=== PATIENT | male | born 1980 | race African-American/Black ===

== ENCOUNTER 2019-08-22 11:23 | Inpatient (IN) | payer OTHER ==
[2019-08-22 12:20] VITALS: BMI 23.9
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
[2019-08-22] MEDS ORDERED: MAGNESIUM CITRATE 300 ML BOTTLE PO PRN (16:35)
[2019-08-22] MEDS ORDERED: ACETAMINOPHEN 325 MG TABLET (FP) PO PRN ×2 (16:35)
[2019-08-22] MEDS ORDERED: cloNIDine HCL 0.1 MG TABLET PO PRN (16:35)
[2019-08-22] MEDS ORDERED: MENTHOL/PHENOL 1 EACH UD MM PRN (16:35)
[2019-08-22] MEDS ORDERED: IBUPROFEN 400 MG TABLET (FP) PO PRN (16:35)
[2019-08-22] MEDS ORDERED: MAG HYDROX/AL HYDROX/SIMETH 30 ML UNIT-DOSE CUP PO PRN (16:35)
[2019-08-22] MEDS ORDERED: BISMUTH SUBSALICYLATE 524 MG/30 ML UD PO PRN (16:35)
[2019-08-22] MEDS ORDERED: MAGNESIUM HYDROX 2400MG/30ML ORAL SUSPENSION 30 ML CUP PO PRN (16:35)
[2019-08-22] MEDS ORDERED: METHADONE HCL 10 MG TABLET (FOR DETOX USE ONLY) PO ONE (17:30)
[2019-08-22] MEDS: METHOCARBAMOL 500 MG TABLET PO PRN (17:38)
[2019-08-22] MEDS: THIAMINE HCL 100 MG TABLET (FP) PO SCH (22:19)
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
[2019-08-23 09:46] LABS: HEMOGLOBIN 12.6 GM/dL (11.7-16.9); MCHC 33.2 g/dl (32.0-35.9); MEAN CELL VOLUME 87.3 fl (80-96); MEAN PLT VOLUME 8.4 fl (7.5-11.1); PLATELET COUNT 262 K/MM3 (134-434); RBC 4.35 M/mm3 (4.00-5.60); RDW 13.8 % (11.9-15.9); WHITE BLOOD COUNT 4.2 K/mm3 (4.0-10.0)
[2019-08-23] MEDS ORDERED: METHADONE HCL 5 MG TABLET (FOR DETOX USE ONLY) PO ONE (10:00)
[2019-08-23] MEDS ORDERED: cloNIDine HCL 0.1 MG TABLET PO PRN (10:00)
[2019-08-23] MEDS ORDERED: METHADONE HCL 5 MG TABLET (FOR DETOX USE ONLY) ONE (10:10)
--- NOTE | 2019-08-23 10:10 | PN ---
[facility] CIWA - CIWA Score Nausea/Vomitin-Mild Nausea/No Vomiting Muscle Tremors: 3 Anxiety: 3 Agitation: 2 Paroxysmal Sweats: 1-Minimal Palms Moist Orientation: 0-Oriented Tacttile Disturbances: 1-Very Mild Itch/Numbness Auditory Disturbances: 0-None Visual Disturbances: 0-None Headache: 2-Mild CIWA-Ar Total Score: 13 BHS COWS - Scale Resting Pulse: 0= [place] 80 or Below Sweatin= No chills or Flushing Restless Observation: 1= Difficult to Sit Still Pupil Size: 1= Pupils >than Normal Bone or Joint Aches: 2= Severe Diffuse Aches Runny Nose/ Eye Tearin= Runny Nose/Eyes GI Upset > 30mins: 2= Nausea/Diarrhea Tremor Observation of Outstretched Hands: 2= Slight Tremor Visible Yawning Observation: 1= 1-2x During Session Anxiety or Irritability: 2=Irritable/Anxious Goose Flesh Skin: 0=Smooth Skin COWS Score: 13 [facility] Progress Note (SOAP) Subjective: alert,irritable,anxious,interrupted sleep,pain in the body and back,nausea, abdominal cramp Objective: 08/23/19 10:09 Vital Signs Temperature 97.9 F 08/23/19 09:28 Pulse Rate 60 08/23/19 09:28 Respiratory Rate 18 08/23/19 09:28 Blood Pressure 129/68 08/23/19 09:28 O2 Sat by Pulse Oximetry (%) Laboratory Last Values WBC 4.2 K/mm3 (4.0-10.0) 08/23/19 07:10 RBC 4.35 M/mm3 (4.00-5.60) 08/23/19 07:10 Hgb 12.6 GM/dL (11.7-16.9) 08/23/19 07:10 Hct 38.0 % (35.4-49) 08/23/19 07:10 MCV 87.3 fl (80-96) 08/23/19 07:10 MCH 29.0 pg (25.7-33.7) 08/23/19 07:10 MCHC 33.2 g/dl (32.0-35.9) 08/23/19 07:10 RDW 13.8 % (11.9-15.9) 08/23/19 07:10 Plt Count 262 K/MM3 (134-434) D 08/23/19 07:10 MPV 8.4 fl (7.5-11.1) D 08/23/19 07:10 labs pending Assessment: 08/23/19 10:09 severe withdrawal symptom Plan: continue detox methadone and librium regimen
[2019-08-23 10:21] LABS: ALBUMIN 3.5 g/dl (3.4-5.0); BILIRUBIN,TOTAL 0.4 mg/dL (0.2-1); BLOOD UREA NITROGEN 8.7 mg/dL (7-18); CALCIUM 9.1 mg/dL (8.5-10.1); POTASSIUM 4.2 mmol/L (3.5-5.1); TOT PROT 6.7 g/dl (6.4-8.2)
[2019-08-23] MEDS ORDERED: METHADONE HCL 10 MG TABLET (FOR DETOX USE ONLY) PO ONE (10:40)
[2019-08-23] MEDS: PRENATAL VITAMINS W/ FOLIC ACID TABLET (FP) PO SCH (11:14)
[2019-08-23] MEDS: METHOCARBAMOL 500 MG TABLET PO PRN (22:05)
[2019-08-23] MEDS: MELATONIN 5 MG TABLETS PO PRN (22:05)
[2019-08-23] MEDS: THIAMINE HCL 100 MG TABLET (FP) PO SCH (22:06)
[2019-08-24] MEDS ORDERED: METHADONE HCL 5 MG TABLET (FOR DETOX USE ONLY) ONE (09:34)
[2019-08-24] MEDS ORDERED: METHADONE HCL 10 MG TABLET (FOR DETOX USE ONLY) ONE (09:34)
[2019-08-24] MEDS ORDERED: METHADONE HCL 10 MG TABLET (FOR DETOX USE ONLY) PO ONE (10:00)
[2019-08-24] MEDS ORDERED: METHADONE (DETOX) 20 MG, METHADONE (DETOX) 5 MG PO ONE (10:00)
--- NOTE | 2019-08-24 10:18 | PN ---
S CIWA - CIWA Score Nausea/Vomitin-Mild Nausea/No Vomiting Muscle Tremors: 2 Anxiety: 2 Agitation: 2 Paroxysmal Sweats: No Perspiration Orientation: 0-Oriented Tacttile Disturbances: 0-None Auditory Disturbances: 0-None Visual Disturbances: 0-None Headache: 2-Mild CIWA-Ar Total Score: 9 BHS COWS - Scale Resting Pulse: 0= [place] 80 or Below Sweatin= No chills or Flushing Restless Observation: 1= Difficult to Sit Still Pupil Size: 1= Pupils >than Normal Bone or Joint Aches: 1= Mild Discomfort Runny Nose/ Eye Tearin= Nasal Congestion GI Upset > 30mins: 1= Stomach Cramp Tremor Observation of Outstretched Hands: 2= Slight Tremor Visible Yawning Observation: 1= 1-2x During Session Anxiety or Irritability: 2=Irritable/Anxious Goose Flesh Skin: 0=Smooth Skin COWS Score: 10 [facility] Progress Note (SOAP) Subjective: alert,irritable,anxious,interrupted sleep,pain in the back and body Objective: 08/24/19 10:16 Vital Signs Temperature 97.5 F L 08/24/19 09:42 Pulse Rate 60 08/24/19 09:42 Respiratory Rate 16 08/24/19 09:42 Blood Pressure 137/70 08/24/19 09:42 O2 Sat by Pulse Oximetry (%) Laboratory Last Values WBC 4.2 K/mm3 (4.0-10.0) 08/23/19 07:10 RBC 4.35 M/mm3 (4.00-5.60) 08/23/19 07:10 Hgb 12.6 GM/dL (11.7-16.9) 08/23/19 07:10 Hct 38.0 % (35.4-49) 08/23/19 07:10 MCV 87.3 fl (80-96) 08/23/19 07:10 MCH 29.0 pg (25.7-33.7) 08/23/19 07:10 MCHC 33.2 g/dl (32.0-35.9) 08/23/19 07:10 RDW 13.8 % (11.9-15.9) 08/23/19 07:10 Plt Count 262 K/MM3 (134-434) D 08/23/19 07:10 MPV 8.4 fl (7.5-11.1) D 08/23/19 07:10 Sodium 139 mmol/L (136-145) 08/23/19 07:10 Potassium 4.2 mmol/L (3.5-5.1) 08/23/19 07:10 Chloride 107 mmol/L (98-107) 08/23/19 07:10 Carbon Dioxide 29 mmol/L (21-32) 08/23/19 07:10 Anion Gap 3 MMOL/L (8-16) L 08/23/19 07:10 BUN 8.7 mg/dL (7-18) 08/23/19 07:10 Creatinine 1.0 mg/dL (0.55-1.3) 08/23/19 07:10 Est GFR (CKD-EPI)AfAm 110.17 08/23/19 07:10 Est GFR (CKD-EPI)NonAf 95.05 08/23/19 07:10 Random Glucose 86 mg/dL (74-106) 08/23/19 07:10 Calcium 9.1 mg/dL (8.5-10.1) 08/23/19 07:10 Total Bilirubin 0.4 mg/dL (0.2-1) 08/23/19 07:10 AST 26 U/L (15-37) 08/23/19 07:10 ALT 24 U/L (13-61) 08/23/19 07:10 Alkaline Phosphatase 121 U/L (45-117) H 08/23/19 07:10 Total Protein 6.7 g/dl (6.4-8.2) 08/23/19 07:10 Albumin 3.5 g/dl (3.4-5.0) 08/23/19 07:10 RPR Titer Nonreactive (NONREACTIVE) 08/23/19 07:10 Assessment: 08/24/19 10:17 withdrawal symptom Plan: continue detox methadone and librium regimen
[2019-08-24] MEDS: PRENATAL VITAMINS W/ FOLIC ACID TABLET (FP) PO SCH (10:55)
[2019-08-24] MEDS ORDERED: HALOPERIDOL 5 MG TABLET (FP) PO ONE (15:28)
[2019-08-24] MEDS ORDERED: BENZTROPINE MESYLATE 1 MG TABLET (FP) PO PRN (15:29)
[2019-08-24] MEDS ORDERED: HALOPERIDOL 2 MG TABLET PO PRN (15:30)
--- NOTE | 2019-08-24 15:39 | PN ---
Psychiatric Progress Note Vital Signs: Vital Signs Period Temp Pulse Resp BP Sys/Diaz Pulse Ox Last 24 Hr 97.5 F-98.2 F 53-74 16-19 113-137/68-82 Date of Session: 08/24/19 Chief Complaint:: asked to be seen by nursing staff HPI: Patient admitted to for treatment of alcohol, opioid, cocaine, cannabis and phencyclidine dependence. ROS: Patient is coherent, alert + oriented X3. Current Medications: Active Medications Generic Name Dose Route Start Last Admin Trade Name Freq PRN Reason Stop Dose Admin Acetaminophen 650 mg 08/22/19 16:35 Tylenol - PO Q6H PRN PAIN LEVEL 4 - 6 Acetaminophen 650 mg 08/22/19 16:35 Tylenol - PO Q6H PRN FEVER Al Hydroxide/Mg Hydroxide 30 ml 08/22/19 16:35 Mylanta Oral Suspension - PO Q6H PRN DYSPEPSIA Benztropine Mesylate 1 mg 08/24/19 15:29 Cogentin - PO BID PRN stiffness Bismuth Subsalicylate 524 mg 08/22/19 16:35 Pepto-Bismol - PO Q1H PRN DIARRHEA Clonidine 0.1 mg 08/23/19 10:00 Catapres - PO 08/25/19 23:59 Q4H PRN Withdrawal Symptoms Eucalyptus/Menthol/Phenol/Sorbitol 1 each 08/22/19 16:35 Cepastat Lozenge - MM 08/28/19 16:35 Q4H PRN SORE THROAT Haloperidol 5 mg 08/24/19 22:00 Haldol - PO BID CHIKI Haloperidol 2 mg 08/24/19 15:30 Haldol - PO Q6H PRN AGITATION Hydroxyzine Pamoate 25 mg 08/22/19 16:35 Vistaril - PO 08/28/19 16:35 Q6H PRN For Anxiety Ibuprofen 400 mg 08/22/19 16:35 Motrin - PO Q6H PRN PAIN LEVEL 1 - 3 Magnesium Citrate 300 ml 08/22/19 16:35 Citroma - PO Q48H PRN CONSTIPATION Magnesium Hydroxide 30 ml 08/22/19 16:35 Milk Of Magnesia - PO PRN PRN CONSTIPATION Melatonin 5 mg 08/22/19 16:35 08/23/19 22:05 Melatonin PO 5 mg HS PRN Administration INSOMNIA Methadone HCl 10 mg/ Methadone 15 mg 08/26/19 10:00 HCl 5 mg PO 08/26/19 10:01 ONCE ONE Methadone HCl 5 mg 08/28/19 06:00 Dolophine - PO 08/28/19 06:01 ONCE@0600 ONE Methadone HCl 10 mg 08/27/19 10:00 Dolophine - PO 08/27/19 10:01 ONCE ONE Methadone HCl 20 mg 08/25/19 10:00 Dolophine - PO 08/25/19 10:01 ONCE ONE Methocarbamol 500 mg 08/22/19 16:35 08/23/19 22:05 Robaxin - PO 08/28/19 16:35 500 mg Q6H PRN Administration MUSCLE SPASMS Multivit/Folic Acid/Iron 1 tab 08/23/19 10:00 08/24/19 10:55 Vitamins (Sjr) - PO 1 tab DAILY CHIKI Administration Thiamine HCl 100 mg 08/22/19 22:00 08/23/19 22:06 Vitamin B1 - PO 100 mg HS CHIKI Administration Medication(s) Change(s): Yes. Current Side Effect: No Lab tests ordered: No Lab tests reviewed: Yes Provider note:: Consultation ordered after it was noted by the nursing staff that patient was pacing the hallway and speaking to self. Pt. seen by Dr. Astorga on 08/22/19. Dr. Astorga's note read and appreciated. Patient unable/ unwilling to provide a clear psychiatric history. States that he has a diagnosis of Bipolar disorder and has been treated in the past with haldol but has not received psychotropic medications in a "long time". Reports one psychiatric hospitalization many years ago at [facility]. Denies current outpatient psychiatric care. Stated to copywriter that his plan is to complete detox and to continue treatment at the [facility]. As per Dr. Tanner's note from 2013 patient has a diagnosis of paranoid schizophrenia and has been treated with haldol deconate 50mg in the past. At present, patient does not appear to be overly psychotic but would benefit from psychopharmacological treatment. He is cooperative with copywriter but is guarded with underlining irritability. Patient at risk for further decompensation if not treated with psychotropic medication. Patient denies auditory/visual hallucinations, suicidal/homicidal ideation. Will order one time Stat dose of Haldol 5mg. Will also order Haldol 5mg BID + Haldol 5mg Q8H PRN for agitation + Cogentin 1mg BID PRN. Benefits and side effects discussed. Verbal consent given. Total face to face time:: 25 Mental Status Exam - Mental Status Exam Alert and Oriented to: Time, Place, Person Cognitive Function: Good Patient Appearance: Well Groomed Mood: Withdrawn Affect: Mood Congruent Patient Behavior: Guarded, Cooperative Speech Pattern: Clear Voice Loudness: Normal Thought Process: Goal Oriented Thought Disorder: Not Present Hallucinations: Denies Suicidal Ideation: Denies Homicidal Ideation: Denies Insight/Judgement: Poor Sleep: Fair Appetite: Fair Muscle strength/Tone: Normal Gait/Station: Normal Psychiatric Treatment Plan - Problem List (1) Cocaine dependence Current Visit: Yes (2) Phencyclidine abuse Current Visit: Yes (3) Substance induced mood disorder Current Visit: Yes (4) Substance-induced sleep disorder Current Visit: Yes (5) Paranoid schizophrenia Current Visit: Yes
[2019-08-24] MEDS: hydrOXYzine PAMOATE 25 MG CAPSULE (FP) PO PRN (15:48)
[2019-08-24] MEDS ORDERED: HALOPERIDOL 5 MG TABLET (FP) PO PRN (15:52)
[2019-08-24] MEDS: HALOPERIDOL 5 MG TABLET (FP) PO SCH (22:11)
[2019-08-24] MEDS: THIAMINE HCL 100 MG TABLET (FP) PO SCH (22:11)
[2019-08-25] MEDS ORDERED: METHADONE HCL 5 MG TABLET (FOR DETOX USE ONLY) PO ONE (06:00)
[2019-08-25] MEDS ORDERED: METHADONE HCL 10 MG TABLET (FOR DETOX USE ONLY) PO ONE (10:00)
[2019-08-25] MEDS: PRENATAL VITAMINS W/ FOLIC ACID TABLET (FP) PO SCH (10:50)
[2019-08-25] MEDS: HALOPERIDOL 5 MG TABLET (FP) PO SCH ×2 (10:50→22:13)
--- NOTE | 2019-08-25 11:51 | PN ---
S CIWA - CIWA Score Nausea/Vomitin-Mild Nausea/No Vomiting Muscle Tremors: 1-None Visible, but [place] Anxiety: 1-Mildly Anxious Agitation: 1-Slight > Activity Paroxysmal Sweats: 2 Orientation: 0-Oriented Tacttile Disturbances: 2-Mild Itch/Numbness/Burn Auditory Disturbances: 0-None Visual Disturbances: 0-None Headache: 0-None Present CIWA-Ar Total Score: 8 BHS COWS - Scale Resting Pulse: 1= [place] 81-100 Sweatin= Chills/Flushing Restless Observation: 1= Difficult to Sit Still Pupil Size: 1= Pupils >than Normal Bone or Joint Aches: 2= Severe Diffuse Aches Runny Nose/ Eye Tearin= Nasal Congestion GI Upset > 30mins: 1= Stomach Cramp Tremor Observation of Outstretched Hands: 1= Tremor [place], Not Seen Yawning Observation: 0= None Anxiety or Irritability: 1=Feels Anxious/Irritable Goose Flesh Skin: 0=Smooth Skin COWS Score: 10 [facility] Progress Note (SOAP) Subjective: interrupted sleep, sweats, low back pain Objective: 08/25/19 11:49 Vital Signs Temperature 98.1 F 08/25/19 09:25 Pulse Rate 82 08/25/19 09:25 Respiratory Rate 16 08/25/19 09:25 Blood Pressure 116/61 08/25/19 09:25 O2 Sat by Pulse Oximetry (%) Laboratory Tests 08/23/19 08/23/19 08/23/19 07:10 07:10 07:10 WBC 4.2 RBC 4.35 Hgb 12.6 Hct 38.0 MCV 87.3 MCH 29.0 MCHC 33.2 RDW 13.8 Plt Count 262 D MPV 8.4 D Sodium 139 Potassium 4.2 Chloride 107 Carbon Dioxide 29 Anion Gap 3 L BUN 8.7 Creatinine 1.0 Est GFR (CKD-EPI)AfAm 110.17 Est GFR (CKD-EPI)NonAf 95.05 Random Glucose 86 Calcium 9.1 Total Bilirubin 0.4 AST 26 ALT 24 Alkaline Phosphatase 121 H Total Protein 6.7 Albumin 3.5 RPR Titer Nonreactive pt aox3 lying in bed in nad Assessment: 08/25/19 11:50 withdrawal sx's Plan: cont. detox increase fluids motrin prn
[2019-08-25] MEDS: THIAMINE HCL 100 MG TABLET (FP) PO SCH (22:13)
[2019-08-26] MEDS ORDERED: METHADONE HCL 10 MG TABLET (FOR DETOX USE ONLY) ONE (09:34)
[2019-08-26] MEDS ORDERED: METHADONE HCL 5 MG TABLET (FOR DETOX USE ONLY) ONE (09:34)
[2019-08-26] MEDS ORDERED: METHADONE (DETOX) 10 MG, METHADONE (DETOX) 5 MG PO ONE (10:00)
[2019-08-26] MEDS: HALOPERIDOL 5 MG TABLET (FP) PO SCH ×2 (10:24→22:37)
[2019-08-26] MEDS: PRENATAL VITAMINS W/ FOLIC ACID TABLET (FP) PO SCH (10:24)
--- NOTE | 2019-08-26 12:49 | PN ---
[facility] CIWA - CIWA Score Nausea/Vomitin-No Nausea/No Vomiting Muscle Tremors: None Anxiety: 3 Agitation: 1-Slight > Activity Paroxysmal Sweats: 3 Orientation: 0-Oriented Tacttile Disturbances: 0-None Auditory Disturbances: 0-None Visual Disturbances: 2-Mild Sensitivity Headache: 0-None Present CIWA-Ar Total Score: 9 S COWS - Scale Resting Pulse: 0= [place] 80 or Below Sweatin= Chills/Flushing Restless Observation: 0= Sits Still Pupil Size: 0= Normal to Room Light Bone or Joint Aches: 1= Mild Discomfort Runny Nose/ Eye Tearin= Nasal Congestion GI Upset > 30mins: 1= Stomach Cramp Tremor Observation of Outstretched Hands: 0= None Yawning Observation: 1= 1-2x During Session Anxiety or Irritability: 2=Irritable/Anxious Goose Flesh Skin: 0=Smooth Skin COWS Score: 7 S Progress Note (SOAP) Subjective: Anxious, Sweating, Fatigue, Body Aches. Objective: PATIENT A & O X 3, OBSERVED AMBULATING ON DETOX UNIT UNASSISTED. IN NO ACUTE DISTRESS. 08/26/19 12:48 Vital Signs Temperature 99.2 F 08/26/19 10:00 Pulse Rate 66 08/26/19 10:00 Respiratory Rate 18 08/26/19 10:00 Blood Pressure 120/71 08/26/19 10:00 O2 Sat by Pulse Oximetry (%) Laboratory Tests 08/23/19 08/23/19 08/23/19 07:10 07:10 07:10 WBC 4.2 RBC 4.35 Hgb 12.6 Hct 38.0 MCV 87.3 MCH 29.0 MCHC 33.2 RDW 13.8 Plt Count 262 D MPV 8.4 D Sodium 139 Potassium 4.2 Chloride 107 Carbon Dioxide 29 Anion Gap 3 L BUN 8.7 Creatinine 1.0 Est GFR (CKD-EPI)AfAm 110.17 Est GFR (CKD-EPI)NonAf 95.05 Random Glucose 86 Calcium 9.1 Total Bilirubin 0.4 AST 26 ALT 24 Alkaline Phosphatase 121 H Total Protein 6.7 Albumin 3.5 RPR Titer Nonreactive LABS NOTED. Assessment: 08/26/19 12:49 WITHDRAWAL SYMPTOMS. Plan: CONTINUE DETOX.
[2019-08-26] MEDS: THIAMINE HCL 100 MG TABLET (FP) PO SCH (22:37)
[2019-08-27] MEDS ORDERED: METHADONE HCL 10 MG TABLET (FOR DETOX USE ONLY) PO ONE (10:00)
[2019-08-27] MEDS: PRENATAL VITAMINS W/ FOLIC ACID TABLET (FP) PO SCH (10:12)
[2019-08-27] MEDS: HALOPERIDOL 5 MG TABLET (FP) PO SCH ×2 (10:14→22:15)
--- NOTE | 2019-08-27 12:11 | PN ---
[facility] COWS - Scale Resting Pulse: 0= [place] 80 or Below Sweatin= Chills/Flushing Restless Observation: 0= Sits Still Pupil Size: 0= Normal to Room Light Bone or Joint Aches: 1= Mild Discomfort Runny Nose/ Eye Tearin= None GI Upset > 30mins: 1= Stomach Cramp Tremor Observation of Outstretched Hands: 0= None Yawning Observation: 0= None Anxiety or Irritability: 2=Irritable/Anxious Goose Flesh Skin: 0=Smooth Skin COWS Score: 5 [facility] Progress Note (SOAP) Subjective: Sweating, interrupted sleep Objective: 08/27/19 12:10 Last Vital Signs Temp Pulse Resp BP Pulse Ox 98.2 F 70 18 116/78 08/27/19 10:44 08/27/19 10:44 08/27/19 10:44 08/27/19 10:44 Laboratory Tests 08/23/19 08/23/19 08/23/19 07:10 07:10 07:10 WBC 4.2 RBC 4.35 Hgb 12.6 Hct 38.0 MCV 87.3 MCH 29.0 MCHC 33.2 RDW 13.8 Plt Count 262 D MPV 8.4 D Sodium 139 Potassium 4.2 Chloride 107 Carbon Dioxide 29 Anion Gap 3 L BUN 8.7 Creatinine 1.0 Est GFR (CKD-EPI)AfAm 110.17 Est GFR (CKD-EPI)NonAf 95.05 Random Glucose 86 Calcium 9.1 Total Bilirubin 0.4 AST 26 ALT 24 Alkaline Phosphatase 121 H Total Protein 6.7 Albumin 3.5 RPR Titer Nonreactive Labs reviewed Assessment: 08/27/19 12:11 Withdrawal sxs Plan: Continue detox Encouraged PO water intake Patient scheduled for discharge home tomorrow
[2019-08-27] MEDS: THIAMINE HCL 100 MG TABLET (FP) PO SCH (22:15)
[2019-08-27] MEDS: MELATONIN 5 MG TABLETS PO PRN (22:15)
[2019-08-27] MEDS: hydrOXYzine PAMOATE 25 MG CAPSULE (FP) PO PRN (23:18)
[2019-08-28] MEDS ORDERED: METHADONE HCL 5 MG TABLET (FOR DETOX USE ONLY) PO ONE (06:00)
--- NOTE | 2019-08-28 09:14 | DS ---
[facility] Detox Discharge Summary Admission Date: 08/22/19 Discharge Date: 08/28/19 - History Present History: Alcohol Dependence, Cannabis Dependence, Cocaine Dependence, Opioid Dependence, Pcp Dependence - Physical Exam Results Vital Signs: Vital Signs Temperature 97.7 F 08/28/19 05:51 Pulse Rate 60 08/28/19 05:51 Respiratory Rate 18 08/28/19 05:51 Blood Pressure 122/75 08/28/19 05:51 O2 Sat by Pulse Oximetry (%) Pertinent Admission Physical Exam Findings: pt arrived in withdrawals - Treatment Hospital Course: Detox Protocol Followed, Detoxed Safely, Responded well, Discharged Condition Good, Rehab Referral Accepted Patient has Accepted a Rehab Referral to: pt referred to [facility] inpatient rehab - Medication Discharge Medications: Ambulatory Orders NK [No Known Home Medication] 08/22/19 - Diagnosis (1) Alcohol dependence Current Visit: Yes Status: Chronic Qualifiers: Substance use status: uncomplicated Qualified Code(s): F10.20 - Alcohol dependence, uncomplicated (2) Cannabis abuse Current Visit: Yes Status: Acute (3) Cocaine dependence Current Visit: Yes Status: Acute (4) Heroin withdrawal Current Visit: Yes Status: Acute (5) Nicotine dependence Current Visit: Yes Status: Acute (6) Phencyclidine abuse Current Visit: Yes Status: Acute (7) Substance induced mood disorder Current Visit: Yes Status: Acute (8) Substance-induced sleep disorder Current Visit: Yes Status: Acute (9) Uncomplicated opioid dependence Current Visit: Yes Status: Acute (10) Paranoid schizophrenia Current Visit: Yes Status: Chronic (11) Schizoaffective disorder Current Visit: Yes Status: Ruled-out (12) Acute alcoholic intoxication in alcoholism, episodic Current Visit: No Status: Acute (13) Alcohol dependence Current Visit: No Status: Acute (14) k2 dependence Current Visit: No Status: Acute (15) PPD positive, treated Current Visit: No Status: Resolved - AMA Did Patient Leave Against Medical Advice: No
[2019-08-28 09:25] VITALS: BP 127/63; PULSE 101; TEMP 96.8
== END 2019-08-28 09:40 | disposition home or self-care (01) | DRG 773 ==
LOC: YASAS 11:23 → Y6N 17:00
PROVIDERS: ADMIT Allergy & Immunology; ATTEND Allergy & Immunology
PROC: HZ2ZZZZ Detoxification Services for Substance Abuse Treatment (ICD-10-PCS; principal; 2019-08-23)
DX: F10.230 Alcohol dependence with withdrawal, uncomplicated (principal); F11.23 Opioid dependence with withdrawal; F14.20 Cocaine dependence, uncomplicated; F16.10 Hallucinogen abuse, uncomplicated; F12.10 Cannabis abuse, uncomplicated; F17.210 Nicotine dependence, cigarettes, uncomplicated; F19.282 Other psychoactive substance dependence with psychoactive substance-induced sleep disorder; F19.24 Other psychoactive substance dependence with psychoactive substance-induced mood disorder; F20.0 Paranoid schizophrenia; F25.9 Schizoaffective disorder, unspecified; Z87.820 Personal history of traumatic brain injury; Z87.828 Personal history of other (healed) physical injury and trauma; Z88.8 Allergy status to other drugs, medicaments and biological substances
CPT/HCPCS: 36415; 71045-TC-FY; 80053; 85027; 86593